=== PATIENT | male | born 1960 | race Caucasian/White ===

== ENCOUNTER 2020-12-02 13:52 | Observation (INO) | payer OTHER, BC ==
[~2020-12-02] VITALS: Ht 177.8 cm; Wt 99.8 kg
[2020-12-02 16:23] LABS: HEMOGLOBIN 13.2 gm/dl (14.0-17.5); RED BLOOD COUNT 4.91 M/UL (4.20-5.50); WHITE BLOOD COUNT 12.7 K/UL (4.5-11.0)
[2020-12-03] MEDS ORDERED: UROCIT-K10 MEQ PO (10:24)
[2020-12-03] MEDS ORDERED: CELECOXIB400 MG PO (10:25)
[2020-12-03] MEDS ORDERED: COZAAR 50MG TAB50 MG PO (10:25)
[2020-12-03] MEDS ORDERED: CELEXA 20MG TAB20 MG PO (10:27)
[2020-12-03] MEDS ORDERED: MINOCYCLINE HC100 MG PO (10:27)
[2020-12-03] MEDS ORDERED: CLONAZEPAM1 MG PO (10:29)
[2020-12-03] MEDS ORDERED: ATORVASTATIN CA20 MG PO (10:29)
[2020-12-03] MEDS ORDERED: FLONASE 0.05% N16 GM (10:31)
[2020-12-03] MEDS ORDERED: IBUPROFEN600 MG PO (12:16)
[2020-12-03] MEDS ORDERED: HYDROCODON-ACE1 EAC2 PO (12:16)
[2020-12-03] MEDS ORDERED: CYCLOBENZAPRINE10 MG PO (12:16)
== END 2020-12-05 12:05 | disposition home or self-care (01) ==
LOC: ER1 13:52 → CDU 18:30 → M/S 12-03 14:42
PROVIDERS: Student in an Organized Health Care Education/Training Program; ADMIT Surgery
DX: S22.32XA Fracture of one rib, left side, initial encounter for closed fracture (principal); W11.XXXA Fall on and from ladder, initial encounter; M25.552 Pain in left hip; R94.4 Abnormal results of kidney function studies; I10 Essential (primary) hypertension; E78.5 Hyperlipidemia, unspecified; K21.9 Gastro-esophageal reflux disease without esophagitis; F41.9 Anxiety disorder, unspecified; G47.30 Sleep apnea, unspecified; F17.200 Nicotine dependence, unspecified, uncomplicated; Z20.822 Contact with and (suspected) exposure to COVID-19; Z88.0 Allergy status to penicillin; Z88.1 Allergy status to other antibiotic agents; Z88.2 Allergy status to sulfonamides; Z88.8 Allergy status to other drugs, medicaments and biological substances; Z79.1 Long term (current) use of non-steroidal anti-inflammatories (NSAID); Z79.899 Other long term (current) drug therapy; Z79.891 Long term (current) use of opiate analgesic
CPT/HCPCS: 71046; 71275; 72100; 73522; 80053; 85025; 94660; 94760; 96374; 96376; 99285; G0378; J1170; J2270; J7030; Q9967; U0002

== ENCOUNTER → 2020-12-13 | Outpatient (CLI) | payer OTHER ==
[~2020-12-13] MED LIST: ATORVASTATIN CA20 MG PO; CELECOXIB400 MG PO; CELEXA 20MG TAB20 MG PO; CLONAZEPAM1 MG PO; COZAAR 50MG TAB50 MG PO; CYCLOBENZAPRINE10 MG PO; FLONASE 0.05% N16 GM; HYDROCODON-ACE1 EAC2 PO; IBUPROFEN600 MG PO; MINOCYCLINE HC100 MG PO; UROCIT-K10 MEQ PO
== END ==
LOC: KOH-I 12:16
DX: S79.912A Unspecified injury of left hip, initial encounter (principal); M25.552 Pain in left hip; M54.50 Low back pain, unspecified; M47.816 Spondylosis without myelopathy or radiculopathy, lumbar region
CPT/HCPCS: 72100; 73502

== ENCOUNTER → 2021-01-05 | Outpatient (CLI) | payer OTHER | LOC: KOH-I 08:24 | DX: M51.16 Intervertebral disc disorders with radiculopathy, lumbar region (principal) | CPT/HCPCS: 72148 ==

== ENCOUNTER → 2021-01-20 | Outpatient (CLI) | payer OTHER | LOC: KOH-I 10:10 | DX: S22.39XA Fracture of one rib, unspecified side, initial encounter for closed fracture (principal); M25.519 Pain in unspecified shoulder; S22.42XA Multiple fractures of ribs, left side, initial encounter for closed fracture; W19.XXXA Unspecified fall, initial encounter | CPT/HCPCS: 73010 ==

== ENCOUNTER → 2021-03-16 | Outpatient (CLI) | payer BC | LOC: KOH-I 11:13 | DX: N20.0 Calculus of kidney (principal) | CPT/HCPCS: 74018 ==